=== PATIENT | male | born 1995 | race American Indian/Alaskan Native ===

== ENCOUNTER 2021-08-31 11:30 | Emergency (ER) | payer SELFPAY ==
[2021-08-31] MEDS ORDERED: ZIPRASIDONE MESYLATE 20 MG VIAL IM ONE (12:26)
--- NOTE | 2021-08-31 13:36 | Emergency Department Report ---
ED Altered Mental Status HPI - General Chief Complaint: Medical Clearance Stated Complaint: WITHDRAWAL Source: patient, EMS Mode of arrival: Ambulatory Limitations: No Limitations - History of Present Illness Initial Comments: 25-year-old -[place] male who reports utilizing some Xanax in his emergency department with altered mental status. Is a poor historian and is un sure of how he got to the emergency department or why he is here states that some people are coming to pick him up he just needs to wait to get with them. He reports ports no chest pain, no palpitations, no fever, chills, sweats MD Complaint: altered mental status - Related Data Allergies Allergy/AdvReac Type Severity Reaction Status Date / Time No Known Allergies Allergy Unverified 08/31/21 11:34 ED Review of Systems ROS: Stated complaint: WITHDRAWAL Other details as noted in HPI ED Physical Exam - General Limitations: No Limitations ED Course Vital Signs 08/31/21 11:31 Temperature 98.3 F Pulse Rate 94 H Respiratory 18 Rate Blood Pressure 131/89 [Left] O2 Sat by Pulse 100 Oximetry Critical care attestation.: If time is entered above; I have spent that time in minutes in the direct care of this critically ill patient, excluding procedure time. ED Disposition Condition: Stable
--- NOTE | 2021-08-31 14:55 | Event Note ---
Date of service: 08/31/21 Face to Face: For this encounter I have reviewed the PA/AWS ARCHITECT documentation, treatment plan, medical decision making, and I had face to face time with this patient. Patient presented with reports of a possible withdrawal. He was found to have psychomotor agitation with evidence of acute delirium. He was confused and altered. Patient was tachycardic and restless. He wanted to sign out AMA but did not have mental capacity to do so. He did not have the capacity to make that decision at that time due to his altered mental status and sensorium. Patient required physical restraint in the form of security. He was then chemically sedated with Geodon and placed in seclusion. I did see the patient before and during this episode. On exam, patient was restless and agitated. He was combative. He had flight of ideas with tangential thought. Heart was regular. Lungs were clear. There is no airway compromise. Patient again required sedation. He will undergo medical screening and then ultimately psychiatric evaluation. 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 A hold was started.
[2021-08-31 19:35] LABS: Hematocrit 48.9 % (35.5-45.6); Hemoglobin 15.8 gm/dl (11.8-15.2); Mean Corpuscular HGB Conc 32 % (32-34); Mean Corpuscular Volume 89 fl (84-94); Platelet Count 171 K/mm3 (140-440); Red Blood Count 5.48 M/mm3 (3.65-5.03); Red Cell Distribution Width 13.8 % (13.2-15.2)
[2021-08-31 19:45] LABS: Alanine Aminotransferase 15 units/L (7-56); Albumin 4.8 g/dL (3.9-5); BUN/Creatinine Ratio 18; Blood Urea Nitrogen 18 mg/dL (9-20); Calcium 9.4 mg/dL (8.4-10.2); Hemolysis Index 15
[2021-08-31 20:40] LABS: Basophils % (Manual) 0 % (0.0-1.8); Eosinophils % (Manual) 0 % (0.0-4.3); Total Cells Counted 100
[2021-08-31 20:41] LABS: Platelet Estimate Consistent w Auto; RBC Morphology Normal
[2021-08-31 23:51] VITALS: BP 104/59
--- NOTE | 2021-09-01 10:32 | Consultation ---
History of Present Illness - Reason for Consult Consult date: 09/01/21 Reason for consult: mental health evaluation - History of Present Psychiatric Illness The patient is a 25 year old male with unknown psychiatric history. In my interview with the patient, he is calm, alert and oriented x2. The patient reports that he was using Xanax from the black market. When asked why he came to the ED, he states his mother wanted him to come to the ED because he has not been sleeping well for the past 3 days. He denies any current suicidal/homicidal ideation and denies hallucinations. PAST PSYCHIATRIC HISTORY Diagnoses: Denies Suicide attempts or Self-harm behavior: Denies Prior psychiatric hospitalizations: Yes Substance Abuse history: Xanax, weed Previous psychiatric medications tried: Xanax Outpatient treatment: Denies PAST MEDICAL HISTORY: Family Psychiatric History: Not available SOCIAL HISTORY Marital Status: Single Living Arrangements: Lives with roommate Employment Status: employed Access to guns/weapons: None reported Education: 2 year college History of Abuse: None reported Legal History: None reported REVIEW OF SYSTEMS Constitutional: Negative for weight loss ENT: Negative for stridor Respiratory: Negative for cough or hemoptysis All other systems reviewed and are negative MENTAL STATUS EXAMINATION General Appearance and Behavior: Age appropriate, good hygiene, wearing appropriate clothes, good eye contact, cooperative polite with questioning. Cooperation: Participating/engaged Psychomotor Behavior: unremarkable and within normal limits Mood:"ok" Affect and affective range: congruent with mood Thought Process: Goal directed Thought Content: reality oriented Speech: Normal volume, Regular rate and rhythm Intellectual Functioning: Average Suicidal Ideation: Denies Homicidal Ideation: Denies Hallucinations: Denies Impulse Control: Unimpaired Insight and Judgment: Normal insight and judgment Memory: Normal Attention: Divided Orientation: Alert, oriented Assessment and Plan (1) Unspecified mood disorder Current Visit: Yes Status: Acute RECOMMENDATIONS continue home meds. Risks, benefits and alternatives of medications discussed with the patient, questions answered and consent obtained from patient. PSYCHOTHERAPY: Supportive psychotherapy provided MEDICAL: Per primary team DELIRIUM PRECAUTIONS: Please re-orient patient frequently, keep lights on during the day, and minimize benzodiazepines and opiates as these medications could worsen patient's confusion. RIVETING MACHINE OPERATOR: Per medical team DISPOSITION:Do not recommend acute inpatient psychiatric hospitalization at this time. Insurance Policy Issue Clerk will provide patient with psychiatric out patient resources. FOLLOW-UP: Will sign off. Thank you for the consult. Please contact with any questions and/or concerns. Medications and Allergies Medications and Allergies Allergies Allergy/AdvReac Type Severity Reaction Status Date / Time No Known Allergies Allergy Unverified 08/31/21 11:34 Mental Status Exam - Vital signs Last Vital Signs Temp 98.4 F 08/31/21 22:00 Pulse 74 08/31/21 22:00 Resp 18 08/31/21 22:00 BP 104/59 08/31/21 22:00 Pulse Ox 100 08/31/21 22:00 Results Result Diagrams: 08/31/21 18:43 08/31/21 18:43 Abnormal lab results 08/31/21 08/31/21 08/31/21 Range/Units 18:43 18:43 18:43 RBC 5.48 H (3.65-5.03) M/mm3 Hgb 15.8 H (11.8-15.2) gm/dl Hct 48.9 H (35.5-45.6) % Seg Neuts % (Manual) 78.0 H (40.0-70.0) % Glucose (75-100) mg/dL Salicylates < 0.3 L (2.8-20.0) mg/dL Acetaminophen 5.0 L (10.0-30.0) ug/mL 08/31/21 Range/Units 18:43 RBC (3.65-5.03) M/mm3 Hgb (11.8-15.2) gm/dl Hct (35.5-45.6) % Seg Neuts % (Manual) (40.0-70.0) % Glucose 122 H (75-100) mg/dL Salicylates (2.8-20.0) mg/dL Acetaminophen (10.0-30.0) ug/mL All other labs normal.
--- NOTE | 2021-09-01 11:55 | Event Note ---
Date: 09/01/21 The patient was evaluated in the emergency department for symptoms described in the history of present illness. He/she was evaluated in the context of the global COVID-19 pandemic, which necessitated consideration that the patient might be at risk for infection with the virus that causes COVID-19. Institutional protocols and algorithms that pertain to the evaluation of patients at risk for COVID-19 are in a state of rapid change based on information released by regulatory bodies including the CDC and federal and state organizations. These policies and algorithms were followed during the patient's care in the emergency department. Please note that these policies, procedures and recommendations changed on a rapid basis. Laboratory studies, vital signs, nursing documentation, ER documentation, and psychiatric documentation are reviewed and appreciated. Nursing team reports no acute events this morning or concerns. The patient is awake and ambulating and does not appear to be in any acute distress. Patient awake, alert, oriented, sober, walking with a steady gait and of sound mind. The patient was deemed medically suitable for psychiatric disposition and placement during his initial ER evaluation. The patient continues to remain medically suitable for psychiatric placement and disposition. The psychiatric team have recommended discontinuation of 1013. 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
== END 2021-09-01 12:30 | disposition home or self-care (01) ==
LOC: ED 11:30
DX: R41.82 Altered mental status, unspecified (principal); Z20.822 Contact with and (suspected) exposure to COVID-19
CPT/HCPCS: 36415; 80053; 85007; 85025; 99284; J3486; U0003; 80320; G0480